=== PATIENT | female | born 1935 | race Caucasian/White ===

== ENCOUNTER 2018-07-11 14:53 | Inpatient (IN) ==
[2018-07-11] MEDS ORDERED: SODIUM CHLORIDE 0.9% 1,000 ML IV STA (15:51)
[2018-07-11 16:35] LABS: Basophils % 0.9 % (0.0-0.8); Eosinophils # 0.1 10*3/uL (0.0-0.87); Eosinophils % 2.6 % (0.00-10.9); Hematocrit 28.4 VOL% (35.7-47.0); Immature Granulocytes % 14.6 %; Lymphocytes # 0.7 10*3/uL (1.4-4.0); Mean Corpuscular HGB Conc 31.7 GM/DL (32-36); Mean Corpuscular Hemoglobin 33 PG (27-34); Mean Corpuscular Volume 105.2 FL (87-102); Mean Platelet Volume 12.7 FL (9.6-12.0); Monocytes # 0.6 10*3/uL (0.11-0.8); Monocytes % 17.8 % (1.7-12.7); NRBC # 0.89 10*3/uL; Neutrophils # 1.5 10*3/uL (1.4-7.4); Neutrophils % 45.1 % (38.7-73.9); Red Cell Distribution Width 22.5 % (9.3-17.3); White Blood Count 3.4 T/CUMM (4-12)
[2018-07-11 16:39] LABS: Platelet Count 30 T/CUMM (130-400)
[2018-07-11 16:43] LABS: PT Patient Result 10.2 SECS; Partial Thromboplastin Time 22.9 SECS (0-40)
[2018-07-11 16:56] LABS: Apearance,Urine Slightly Hazy (Clear); Bilirubin,Urine Negative (Negative); Blood, Urine Negative (Negative); Glucose,Urine (UA) Negative (Negative); Hyaline Casts,Urine 3 /LPF (0-3); Ketones,Urine 5 mg/dL (Negative); Mucus,Urine Occasional /LPF (Occasional); Nitrite,Urine Negative (Negative); Protein,Urine Negative; RBC,Urine 1 /HPF (0-4); Urine Color Yellow (Yellow); Urine Specific Gravity 1.006 (1.001-1.035); Urine Urobilinogen < 2.0 EU/DL (0.2-1.0); WBC,Urine <1 /HPF (0-6)
[2018-07-11 16:59] LABS: Ammonia < 10 UMOL/L (11-32)
[2018-07-11 17:02] LABS: Alanine Aminotransferase 24 U/L (13-56); Albumin 3.4 G/DL (3.4-5.0); Alkaline Phosphatase 93 U/L (45-117); Aspartate Amino Transferase 24 U/L (0-37); Blood Urea Nitrogen 16 MG/DL (7-18); Calcium 8.8 MG/DL (8.5-10.1); Glucose 103 MG/DL (74-106); Osmolality,Calculated 281.3 MOS/KG (273-304); Potassium 4.3 MMOL/L (3.5-5.1); Sodium 141 MMOL/L (136-145); Total Protein 6.9 G/DL (6.4-8.3)
[2018-07-11 17:19] LABS: Band Neutrophils 5 % (0-10); Eosinophils 4 % (0-10); Lymphocytes 29 % (20-55); Nucleated Red Blood Cells 9 (0-5); Segmented Neutrophils 37 % (50-85); Total Cells Counted 100
[2018-07-11 17:20] LABS: Polychromasia 1+
[2018-07-11 17:21] LABS: Hypochromasia 1+; Macrocytosis 1+
[2018-07-11 17:22] LABS: Platelet Estimate Decreased
[2018-07-11] MEDS ORDERED: ACETAMINOPHEN 325 MG TABLET PO PRN (18:49)
[2018-07-11] MEDS ORDERED: DOCUSATE SODIUM 100 MG CAPSULE PO PRN (18:49)
[2018-07-11] MEDS ORDERED: ONDANSETRON 4 MG/2 ML VIAL IV PRN (18:49)
[2018-07-11] MEDS ORDERED: PROMETHAZINE 25 MG/1 ML VIAL IM PRN (19:07)
[2018-07-11 20:10] LABS: Troponin I 0.015 NG/ML (0.00-0.045)
[2018-07-11] MEDS: traMADol 50 MG TABLET PO SCH (20:42)
[2018-07-11] MEDS: MAGNESIUM CHLORIDE 64 MG TABLET PO SCH (20:43)
[2018-07-11] MEDS: DEXTROSE 5% NACL 0.45% 1,000 ML IV SCH (20:45)
[2018-07-12 04:00] LABS: Basophils % 0.9 % (0.0-0.8); Eosinophils # 0.1 10*3/uL (0.0-0.87); Eosinophils % 2.4 % (0.00-10.9); Hematocrit 24.7 VOL% (35.7-47.0); Hemoglobin 7.5 GM/DL (12.0-16.0); Immature Granulocytes % 11.5 %; Immature Granulocytes Absolute 0.39 #; Lymphocytes # 0.6 10*3/uL (1.4-4.0); Lymphocytes % 18.2 % (21.3-54.2); Mean Corpuscular HGB Conc 30.4 GM/DL (32-36); Mean Corpuscular Hemoglobin 32 PG (27-34); Mean Corpuscular Volume 106.5 FL (87-102); Mean Platelet Volume 13.6 FL (9.6-12.0); Monocytes # 0.6 10*3/uL (0.11-0.8); Monocytes % 17.1 % (1.7-12.7); NRBC # 0.77 10*3/uL; Neutrophils # 1.7 10*3/uL (1.4-7.4); Neutrophils % 49.9 % (38.7-73.9); Red Blood Count 2.32 MC/CUMM (3.8-5.5); Red Cell Distribution Width 22.9 % (9.3-17.3); White Blood Count 3.4 T/CUMM (4-12)
[2018-07-12 04:10] LABS: Platelet Count 33 T/CUMM (130-400)
[2018-07-12 04:20] LABS: Albumin 2.9 G/DL (3.4-5.0); Calcium 8.2 MG/DL (8.5-10.1); Osmolality,Calculated 286.8 MOS/KG (273-304); Potassium 3.4 MMOL/L (3.5-5.1)
[2018-07-12 04:23] LABS: % Iron Saturation 34.6 % (18-50); Ferritin 1114.3 ng/ml (8-252)
[2018-07-12 04:29] LABS: Anisocytosis Slight; Band Neutrophils 3 % (0-10); Eosinophils 3 % (0-10); Lymphocytes 35 % (20-55); Macrocytosis 2+; Nucleated Red Blood Cells 21 (0-5); Platelet Estimate Decreased; Segmented Neutrophils 45 % (50-85); Tear Drop Cells Few; Total Cells Counted 100
[2018-07-12 04:30] LABS: Folate 20.5 NG/ML (5.4-24.0); Vitamin B12 272 PG/ML (211-911)
[2018-07-12 06:47] LABS: Sedimentation Rate-Westergren 45 MM/HR (0-30)
[2018-07-12] MEDS ORDERED: POTASSIUM CHLORIDE RIDER 10 MEQ in PREMIX 1 EACH IV PRN (07:10)
[2018-07-12 07:27] LABS: Troponin I 0.023 NG/ML (0.00-0.045)
[2018-07-12] MEDS: FLUoxetine 10 MG CAPSULE PO SCH (09:39)
[2018-07-12] MEDS: POLYETHYLENE GLYCOL POWDER 17 GM PACK PO SCH (09:39)
[2018-07-12] MEDS: ALUMINUM/MAGNES/SIMETH MAX STR 30 ML UDCUP PO SCH (09:39)
[2018-07-12] MEDS: CALCIUM (CARBONATE)/VITAMIN D 600 MG-400 UNIT TABLET PO SCH (09:39)
[2018-07-12] MEDS: amLODIPine 5 MG TABLET PO SCH (09:39)
[2018-07-12] MEDS: METOPROLOL SUCCINATE XL 50 MG TABLET PO SCH (09:39)
[2018-07-12 09:51] LABS: Hemoglobin A1 (Alkaline) 97.8 % (96.5-98.5); Hemoglobin A2 (Alkaline) 2.2 % (1.5-3.5)
[2018-07-12] MEDS: DEXTROSE 5% NACL 0.45% 1,000 ML IV SCH ×2 (09:54→23:32)
[2018-07-12] MEDS ORDERED: CYANOCOBALAMIN 1000 MCG/1 ML VIAL SUBCUT ONE (11:21)
[2018-07-12] MEDS: CYANOCOBALAMIN 500 MCG TABLET PO SCH (12:37)
[2018-07-12] MEDS: POTASSIUM CHLORIDE 20 MEQ TABLET PO PRN ×3 (12:39→17:14)
[2018-07-12] MEDS ORDERED: ZIPRASIDONE 20 MG/1 ML VIAL IM ONE (13:00)
[2018-07-12] MEDS: MAGNESIUM CHLORIDE 64 MG TABLET PO SCH (23:25)
[2018-07-12] MEDS: traZODone 50 MG TABLET PO PRN (23:25)
[2018-07-12] MEDS: QUEtiapine 25 MG TABLET PO SCH (23:25)
[2018-07-12] MEDS: traMADol 50 MG TABLET PO SCH (23:25)
[2018-07-12] MEDS: MEMANTINE 5 MG TABLET PO SCH (23:25)
[2018-07-13 05:48] LABS: Basophils % 0.7 % (0.0-0.8); Eosinophils # 0.1 10*3/uL (0.0-0.87); Eosinophils % 2.7 % (0.00-10.9); Hematocrit 23.4 VOL% (35.7-47.0); Hemoglobin 7.3 GM/DL (12.0-16.0); Immature Granulocytes % 10.7 %; Immature Granulocytes Absolute 0.32 #; Lymphocytes # 0.6 10*3/uL (1.4-4.0); Lymphocytes % 20.1 % (21.3-54.2); Mean Corpuscular HGB Conc 31.2 GM/DL (32-36); Mean Corpuscular Hemoglobin 33 PG (27-34); Mean Corpuscular Volume 105.4 FL (87-102); Monocytes # 0.4 10*3/uL (0.11-0.8); Monocytes % 13.8 % (1.7-12.7); NRBC # 0.49 10*3/uL; Neutrophils # 1.6 10*3/uL (1.4-7.4); Red Blood Count 2.22 MC/CUMM (3.8-5.5)
[2018-07-13 06:03] LABS: Platelet Count 27 T/CUMM (130-400)
[2018-07-13 06:16] LABS: Band Neutrophils 9 % (0-10); Eosinophils 1 % (0-10); Lymphocytes 31 % (20-55); Myelocytes 1 %; Nucleated Red Blood Cells 11 (0-5); Platelet Estimate Decreased; Segmented Neutrophils 48 % (50-85); Total Cells Counted 100
[2018-07-13 06:17] LABS: Hypochromasia 1+; Macrocytosis Slight; Ovalocytes Slight
[2018-07-13 06:18] LABS: Albumin 2.8 G/DL (3.4-5.0); Bilirubin,Total 0.6 MG/DL (0.2-1.0); Potassium 3.8 MMOL/L (3.5-5.1); Prealbumin 18.9 MG/DL (20-40); Total Protein 5.6 G/DL (6.4-8.3)
[2018-07-13] MEDS ORDERED: SODIUM CHLORIDE 0.9% 1,000 ML IV PRN (09:05)
[2018-07-13] MEDS: traMADol 50 MG TABLET PO PRN (10:43)
[2018-07-13] MEDS: CALCIUM (CARBONATE)/VITAMIN D 600 MG-400 UNIT TABLET PO SCH (10:50)
[2018-07-13] MEDS: ALUMINUM/MAGNES/SIMETH MAX STR 30 ML UDCUP PO SCH (10:50)
[2018-07-13] MEDS: CYANOCOBALAMIN 500 MCG TABLET PO SCH (10:50)
[2018-07-13] MEDS: amLODIPine 5 MG TABLET PO SCH (10:51)
[2018-07-13] MEDS: FLUoxetine 10 MG CAPSULE PO SCH (10:51)
[2018-07-13] MEDS: POLYETHYLENE GLYCOL POWDER 17 GM PACK PO SCH (10:51)
[2018-07-13] MEDS: MEMANTINE 5 MG TABLET PO SCH ×2 (10:51→20:35)
[2018-07-13] MEDS: METOPROLOL SUCCINATE XL 50 MG TABLET PO SCH (10:51)
[2018-07-13] MEDS ORDERED: METHOCARBAMOL 750 MG TABLET PO PRN (11:18)
[2018-07-13] MEDS ORDERED: KETOROLAC 15 MG/1 ML VIAL IV ONE (12:00)
[2018-07-13] MEDS ORDERED: METHOCARBAMOL 500 MG TABLET PO PRN (12:30)
[2018-07-13 18:18] LABS: Apearance,Urine Slightly Hazy (Clear); Bilirubin,Urine Negative (Negative); Blood, Urine Small mg/dL (Negative); Glucose,Urine (UA) Negative (Negative); Ketones,Urine Negative (Negative); Mucus,Urine Occasional /LPF (Occasional); Nitrite,Urine Negative (Negative); Protein,Urine Negative; RBC,Urine 3 /HPF (0-4); Squamous Epithelial Cell,Urine Occasional /HPF (0-10); Urine Color Yellow (Yellow); Urine Specific Gravity 1.044 (1.001-1.035); Urine Urobilinogen < 2.0 EU/DL (0.2-1.0); WBC,Urine 86 /HPF (0-6)
[2018-07-13] MEDS: DEXTROSE 5% NACL 0.45% 1,000 ML IV SCH (20:34)
[2018-07-13] MEDS: QUEtiapine 25 MG TABLET PO SCH (20:35)
[2018-07-13] MEDS: traMADol 50 MG TABLET PO SCH (20:35)
[2018-07-13] MEDS: MAGNESIUM CHLORIDE 64 MG TABLET PO SCH (20:35)
[2018-07-13] MEDS: GABAPENTIN 100 MG CAPSULE PO SCH (20:35)
[2018-07-14 09:11] LABS: Basophils % 1.3 % (0.0-0.8); Eosinophils # 0.1 10*3/uL (0.0-0.87); Hematocrit 28.5 VOL% (35.7-47.0); Lymphocytes # 0.6 10*3/uL (1.4-4.0); Lymphocytes % 18.6 % (21.3-54.2); Mean Corpuscular HGB Conc 31.9 GM/DL (32-36); Mean Corpuscular Hemoglobin 33 PG (27-34); Mean Corpuscular Volume 102.5 FL (87-102); Mean Platelet Volume 12.6 FL (9.6-12.0); Monocytes # 0.4 10*3/uL (0.11-0.8); NRBC # 0.45 10*3/uL; Neutrophils # 1.6 10*3/uL (1.4-7.4); Neutrophils % 53.1 % (38.7-73.9); Red Cell Distribution Width 22.8 % (9.3-17.3)
[2018-07-14 09:25] LABS: Platelet Count 24 T/CUMM (130-400); Red Blood Count 2.78 MC/CUMM (3.8-5.5)
[2018-07-14 09:26] LABS: Hemoglobin 9.1 GM/DL (12.0-16.0)
[2018-07-14 09:36] LABS: Albumin 2.9 G/DL (3.4-5.0); Bilirubin,Total 0.9 MG/DL (0.2-1.0); Calcium 8.5 MG/DL (8.5-10.1); Osmolality,Calculated 280.3 MOS/KG (273-304); Potassium 4.1 MMOL/L (3.5-5.1); Total Protein 6.2 G/DL (6.4-8.3)
[2018-07-14 09:51] LABS: Band Neutrophils 6 % (0-10); Eosinophils 5 % (0-10); Hypochromasia 1+; Lymphocytes 26 % (20-55); Myelocytes 1 %; Nucleated Red Blood Cells 12 (0-5); Ovalocytes Slight; Platelet Estimate Decreased; Segmented Neutrophils 49 % (50-85); Total Cells Counted 100
[2018-07-14 09:55] LABS: Macrocytosis Slight
[2018-07-14] MEDS: PANTOPRAZOLE 40 MG VIAL IV SCH (10:02)
[2018-07-14] MEDS: ALUMINUM/MAGNES/SIMETH MAX STR 30 ML UDCUP PO SCH (10:03)
[2018-07-14] MEDS: amLODIPine 5 MG TABLET PO SCH (10:03)
[2018-07-14] MEDS: MEMANTINE 5 MG TABLET PO SCH ×2 (10:03→22:00)
[2018-07-14] MEDS: POLYETHYLENE GLYCOL POWDER 17 GM PACK PO SCH (10:03)
[2018-07-14] MEDS: CALCIUM (CARBONATE)/VITAMIN D 600 MG-400 UNIT TABLET PO SCH (10:03)
[2018-07-14] MEDS: CYANOCOBALAMIN 500 MCG TABLET PO SCH (10:03)
[2018-07-14] MEDS: FLUoxetine 10 MG CAPSULE PO SCH (10:03)
[2018-07-14] MEDS: METOPROLOL SUCCINATE XL 50 MG TABLET PO SCH (10:04)
[2018-07-14] MEDS: GABAPENTIN 100 MG CAPSULE PO SCH ×3 (10:04→22:00)
[2018-07-14] MEDS: cefTRIAXone 2,000 MG in SYRINGE 1 EACH IV SCH (12:56)
[2018-07-14] MEDS: DEXTROSE 5% NACL 0.45% 1,000 ML IV SCH ×2 (12:57→23:21)
[2018-07-14] MEDS: QUEtiapine 25 MG TABLET PO SCH (22:00)
[2018-07-14] MEDS: traZODone 50 MG TABLET PO PRN (22:00)
[2018-07-14] MEDS: traMADol 50 MG TABLET PO SCH (22:00)
[2018-07-14] MEDS: MAGNESIUM CHLORIDE 64 MG TABLET PO SCH (22:00)
[2018-07-15 05:21] LABS: Eosinophils # 0.1 10*3/uL (0.0-0.87); Eosinophils % 2.5 % (0.00-10.9); Hematocrit 26.2 VOL% (35.7-47.0); Hemoglobin 8.5 GM/DL (12.0-16.0); Immature Granulocytes % 9.9 %; Immature Granulocytes Absolute 0.31 #; Lymphocytes # 0.7 10*3/uL (1.4-4.0); Lymphocytes % 21.7 % (21.3-54.2); Mean Corpuscular HGB Conc 32.4 GM/DL (32-36); Mean Corpuscular Hemoglobin 34 PG (27-34); Mean Corpuscular Volume 103.1 FL (87-102); Mean Platelet Volume 11.9 FL (9.6-12.0); Monocytes # 0.4 10*3/uL (0.11-0.8); Monocytes % 12.4 % (1.7-12.7); NRBC # 0.36 10*3/uL; Neutrophils # 1.7 10*3/uL (1.4-7.4); Neutrophils % 52.5 % (38.7-73.9); Red Blood Count 2.54 MC/CUMM (3.8-5.5); Red Cell Distribution Width 22.1 % (9.3-17.3); White Blood Count 3.1 T/CUMM (4-12)
[2018-07-15 05:35] LABS: Platelet Count 21 T/CUMM (130-400)
[2018-07-15 05:48] LABS: Band Neutrophils 6 % (0-10); Eosinophils 2 % (0-10); Hypochromasia 1+; Lymphocytes 26 % (20-55); Macrocytosis Slight; Nucleated Red Blood Cells 9 (0-5); Ovalocytes Slight; Platelet Estimate Decreased; Segmented Neutrophils 51 % (50-85); Total Cells Counted 100
[2018-07-15 05:51] LABS: Calcium 7.9 MG/DL (8.5-10.1); Osmolality,Calculated 277.4 MOS/KG (273-304)
[2018-07-15] MEDS: POLYETHYLENE GLYCOL POWDER 17 GM PACK PO SCH (08:54)
[2018-07-15] MEDS: CYANOCOBALAMIN 500 MCG TABLET PO SCH (08:54)
[2018-07-15] MEDS: ALUMINUM/MAGNES/SIMETH MAX STR 30 ML UDCUP PO SCH (08:54)
[2018-07-15] MEDS: GABAPENTIN 100 MG CAPSULE PO SCH (08:54)
[2018-07-15] MEDS: amLODIPine 5 MG TABLET PO SCH (08:55)
[2018-07-15] MEDS: FLUoxetine 10 MG CAPSULE PO SCH (08:55)
[2018-07-15] MEDS: METOPROLOL SUCCINATE XL 50 MG TABLET PO SCH (08:55)
[2018-07-15] MEDS: CALCIUM (CARBONATE)/VITAMIN D 600 MG-400 UNIT TABLET PO SCH (08:55)
[2018-07-15] MEDS: MEMANTINE 5 MG TABLET PO SCH (08:55)
[2018-07-15] MEDS: PANTOPRAZOLE 40 MG VIAL IV SCH (08:55)
[2018-07-15] MEDS: traMADol 50 MG TABLET PO PRN (09:04)
[2018-07-15] MEDS ORDERED: BISACODYL 10 MG SUPP RECTAL ONE (09:30)
[2018-07-15] MEDS: cefTRIAXone 2,000 MG in SYRINGE 1 EACH IV SCH (11:01)
[2018-07-15 11:54] VITALS: BP 138/85
== END 2018-07-15 12:45 | DRG 71 ==
LOC: EDBD → EDUNIT# → N.ED 14:53 → SUATTDRO 18:49 → N.EDINP 18:49 → N.2E 19:47
PROVIDERS: ADMIT Hospitalist; ATTEND Internal Medicine

== ENCOUNTER 2019-03-31 06:52 | Inpatient (IN) ==
[2019-03-31] MEDS ORDERED: ONDANSETRON 4 MG/2 ML VIAL IV PRN ×2 (07:02→08:57)
[2019-03-31] MEDS ORDERED: PANTOPRAZOLE 40 MG VIAL IV STA (07:02)
[2019-03-31 07:47] LABS: Basophils % 1.8 % (0.0-0.8); Eosinophils # 0.1 10*3/uL (0.0-0.87); Eosinophils % 4.1 % (0.00-10.9); Hematocrit 31.5 VOL% (35.7-47.0); Hemoglobin 10.1 GM/DL (12.0-16.0); Immature Granulocytes % 6.5 %; Immature Granulocytes Absolute 0.11 #; Lymphocytes # 0.5 10*3/uL (1.4-4.0); Lymphocytes % 29.6 % (21.3-54.2); Mean Corpuscular HGB Conc 32.1 GM/DL (32-36); Mean Corpuscular Volume 95.5 FL (87-102); Monocytes % 11.8 % (1.7-12.7); NRBC # 0.29 10*3/uL; Neutrophils % 46.2 % (38.7-73.9); Red Cell Distribution Width 21.2 % (9.3-17.3); White Blood Count 1.7 T/CUMM (4-12)
[2019-03-31 07:57] LABS: Platelet Count 11 T/CUMM (130-400)
[2019-03-31 08:11] LABS: INR 0.9; Partial Thromboplastin Time < 21.0 SECS (0-40)
[2019-03-31 08:17] LABS: Band Neutrophils 7 % (0-10); Eosinophils 4 % (0-10); Lymphocytes 32 % (20-55); Myelocytes 1 %; Nucleated Red Blood Cells 15 (0-5); Platelet Estimate Decreased; Segmented Neutrophils 47 % (50-85); Total Cells Counted 100
[2019-03-31 08:17] LABS: Albumin 3.3 G/DL (3.4-5.0); Bilirubin,Total 0.5 MG/DL (0.2-1.0); Calcium 8.8 MG/DL (8.5-10.1); Osmolality,Calculated 286.1 MOS/KG (273-304); Total Protein 6.6 G/DL (6.4-8.3)
[2019-03-31 08:18] LABS: Hypochromasia 1+; Macrocytosis Slight; Ovalocytes Slight; Polychromasia Slight
[2019-03-31] MEDS ORDERED: SODIUM CHLORIDE 0.9% 1,000 ML IV PRN (09:00)
[2019-03-31 13:21] LABS: Hemoglobin 8.4 GM/DL (12.0-16.0)
[2019-03-31] MEDS ORDERED: DOCUSATE SODIUM 100 MG CAPSULE PO PRN (15:41)
[2019-03-31 18:55] LABS: Hematocrit 23.5 VOL% (35.7-47.0); Hemoglobin 7.4 GM/DL (12.0-16.0)
[2019-03-31] MEDS: SODIUM CHLORIDE 0.9% 1,000 ML IV SCH (19:50)
[2019-03-31] MEDS ORDERED: PANTOPRAZOLE 40 MG VIAL IV SCH (21:00)
[2019-03-31 21:04] LABS: Hemoglobin 7.7 GM/DL (12.0-16.0)
[2019-03-31] MEDS: MAGNESIUM CHLORIDE 64 MG TABLET PO SCH (21:08)
[2019-03-31] MEDS: GABAPENTIN 100 MG CAPSULE PO SCH (21:08)
[2019-03-31] MEDS: traMADol 50 MG TABLET PO SCH (21:08)
[2019-04-01 04:58] LABS: Basophils % 0.8 % (0.0-0.8); Eosinophils # 0.1 10*3/uL (0.0-0.87); Eosinophils % 3.8 % (0.00-10.9); Hematocrit 22.5 VOL% (35.7-47.0); Hemoglobin 7.4 GM/DL (12.0-16.0); Immature Granulocytes % 8.3 %; Immature Granulocytes Absolute 0.11 #; Lymphocytes # 0.5 10*3/uL (1.4-4.0); Lymphocytes % 39.8 % (21.3-54.2); Mean Corpuscular HGB Conc 32.9 GM/DL (32-36); Mean Corpuscular Volume 96.2 FL (87-102); Mean Platelet Volume 10.1 FL (9.6-12.0); Monocytes % 9.8 % (1.7-12.7); NRBC # 0.19 10*3/uL; Neutrophils % 37.5 % (38.7-73.9); Platelet Count 68 T/CUMM (130-400); Red Blood Count 2.34 MC/CUMM (3.8-5.5); Red Cell Distribution Width 21.2 % (9.3-17.3); White Blood Count 1.3 T/CUMM (4-12)
[2019-04-01 05:15] LABS: Apearance,Urine CLEAR (Clear); Bilirubin,Urine Negative (Negative); Blood, Urine Negative (Negative); Glucose,Urine (UA) Negative (Negative); Hyaline Casts,Urine 1 /LPF (0-3); Ketones,Urine Negative (Negative); Mucus,Urine Occasional /LPF (Occasional); Nitrite,Urine Negative (Negative); Protein,Urine Negative; RBC,Urine 1 /HPF (0-4); Squamous Epithelial Cell,Urine Occasional /HPF (0-10); Urine Color Yellow (Yellow); Urine Specific Gravity 1.013 (1.001-1.035); Urine Urobilinogen < 2.0 EU/DL (0.2-1.0); WBC,Urine 1 /HPF (0-6)
[2019-04-01 05:27] LABS: Band Neutrophils 3 % (0-10); Eosinophils 3 % (0-10); Hypochromasia 1+; Lymphocytes 47 % (20-55); Nucleated Red Blood Cells 13 (0-5); Ovalocytes Slight; Platelet Estimate Decreased; Segmented Neutrophils 38 % (50-85); Total Cells Counted 100
[2019-04-01 05:45] LABS: Calcium 8.2 MG/DL (8.5-10.1); Osmolality,Calculated 288.7 MOS/KG (273-304); Thyroid Stimulating Hormone 6.21 uIU/ml (0.358-3.74)
[2019-04-01] MEDS ORDERED: POLYETHYLENE GLYCOL POWDER 17 GM PACK PO SCH (09:00)
[2019-04-01] MEDS: METOPROLOL SUCCINATE XL 50 MG TABLET PO SCH (09:29)
[2019-04-01] MEDS: CYANOCOBALAMIN 500 MCG TABLET PO SCH (09:29)
[2019-04-01] MEDS: amLODIPine 5 MG TABLET PO SCH (09:29)
[2019-04-01] MEDS: FLUoxetine 20 MG CAPSULE PO SCH (09:29)
[2019-04-01] MEDS: GABAPENTIN 100 MG CAPSULE PO SCH ×3 (09:29→20:53)
[2019-04-01] MEDS: FUROSEMIDE 40 MG TABLET PO SCH (09:29)
[2019-04-01] MEDS: CALCIUM (CARBONATE)/VITAMIN D 600 MG-400 UNIT TABLET PO SCH (09:29)
[2019-04-01] MEDS: PANTOPRAZOLE 40 MG TABLET PO SCH ×2 (09:29→20:53)
[2019-04-01] MEDS: POLYETHYLENE GLYCOL POWDER 17 GM PACK PO SCH ×2 (09:30→20:54)
[2019-04-01] MEDS: SODIUM CHLORIDE 0.9% 1,000 ML IV SCH ×2 (09:33→21:00)
[2019-04-01] MEDS ORDERED: SODIUM CHLORIDE 0.9% 1,000 ML IV PRN (13:21)
[2019-04-01] MEDS: MAGNESIUM CHLORIDE 64 MG TABLET PO SCH (20:53)
[2019-04-01] MEDS: traMADol 50 MG TABLET PO SCH (20:53)
[2019-04-01 21:54] LABS: Hematocrit 31.9 VOL% (35.7-47.0)
[2019-04-01 21:57] LABS: Hemoglobin 10.2 GM/DL (12.0-16.0)
[2019-04-02 05:31] LABS: Osmolality,Calculated 284.8 MOS/KG (273-304)
[2019-04-02 05:34] LABS: Basophils % 1.9 % (0.0-0.8); Eosinophils # 0.1 10*3/uL (0.0-0.87); Eosinophils % 3.2 % (0.00-10.9); Hematocrit 31.2 VOL% (35.7-47.0); Immature Granulocytes % 9.1 %; Immature Granulocytes Absolute 0.14 #; Lymphocytes # 0.5 10*3/uL (1.4-4.0); Lymphocytes % 35.1 % (21.3-54.2); Mean Corpuscular HGB Conc 32.1 GM/DL (32-36); Mean Corpuscular Volume 94.3 FL (87-102); Mean Platelet Volume 10.2 FL (9.6-12.0); Monocytes % 15.6 % (1.7-12.7); NRBC # 0.26 10*3/uL; Neutrophils % 35.1 % (38.7-73.9); Platelet Count 58 T/CUMM (130-400); Red Blood Count 3.31 MC/CUMM (3.8-5.5); Red Cell Distribution Width 19.9 % (9.3-17.3); White Blood Count 1.5 T/CUMM (4-12)
[2019-04-02 07:45] LABS: Band Neutrophils 6 % (0-10); Eosinophils 2 % (0-10); Lymphocytes 36 % (20-55); Nucleated Red Blood Cells 11 (0-5); Segmented Neutrophils 32 % (50-85); Total Cells Counted 100
[2019-04-02 07:46] LABS: Ovalocytes Few; Platelet Estimate Decreased; Polychromasia Few
[2019-04-02 08:12] VITALS: BP 142/67
[2019-04-02] MEDS: amLODIPine 5 MG TABLET PO SCH (08:40)
[2019-04-02] MEDS: FLUoxetine 20 MG CAPSULE PO SCH (08:40)
[2019-04-02] MEDS: CALCIUM (CARBONATE)/VITAMIN D 600 MG-400 UNIT TABLET PO SCH (08:40)
[2019-04-02] MEDS: METOPROLOL SUCCINATE XL 50 MG TABLET PO SCH (08:40)
[2019-04-02] MEDS: POLYETHYLENE GLYCOL POWDER 17 GM PACK PO SCH (08:41)
[2019-04-02] MEDS: PANTOPRAZOLE 40 MG TABLET PO SCH (08:41)
[2019-04-02] MEDS: GABAPENTIN 100 MG CAPSULE PO SCH (08:41)
[2019-04-02] MEDS: FUROSEMIDE 40 MG TABLET PO SCH (08:41)
[2019-04-02] MEDS: CYANOCOBALAMIN 500 MCG TABLET PO SCH (08:41)
== END 2019-04-02 12:25 | DRG 378 ==
LOC: EDUNIT# → N.ED 06:52 → SUPCPDRO 08:44 → N.EDINP 08:44 → N.4E 11:25
PROVIDERS: ADMIT Internal Medicine; ATTEND Internal Medicine